=== PATIENT | female | born 1960 | race Caucasian/White ===

== ENCOUNTER 2018-08-04 05:07 | Observation (INO) ==
--- NOTE | 2018-07-27 09:05 | EKG Report ---
Test Performed on : 07/27/2018 08:44:32 AM Test Reason : pat Blood Pressure : / mmHG Vent. Rate : 093 BPM Atrial Rate : 093 BPM P-R Int : 152 ms QRS Dur : 080 ms QT Int : 364 ms P-R-T Axes : 031 015 049 degrees QTc Int : 452 ms Normal sinus rhythm. Normal ECG When compared with ECG of 06-AUG-2017 07:48, No significant change was found Confirmed by Sajan RAM, Walt Box ([id number]) on 07/27/2018 9:28:56 AM
[2018-07-27 09:07] LABS: URINE SOURCE CLEAN CATCH
[2018-07-27 09:24] LABS: BILIRUBIN URINE NEGATIVE (NEGATIVE); BLOOD URINE NEGATIVE (NEGATIVE); COLOR YELLOW; GLUCOSE URINE NEGATIVE (NEGATIVE); KETONE URINE NEGATIVE (NEGATIVE); LEUKOCYTES URINE LARGE (NEGATIVE); NITRITE URINE NEGATIVE (NEGATIVE); PH URINE 6.5; PROTEIN URINE TRACE mg/dL (NEGATIVE); SP GRAVITY URINE 1.007; TURBIDITY URINE CLEAR (CLEAR); UROBILINOGEN URINE NORMAL (NORMAL)
[2018-07-27 09:25] LABS: BASO# 0.03 X1000 (0.0-0.2); BASO% 0.5 % (0.0-0.8); EOS# 0.21 X1000 (0.0-0.7); EOS% 3.3 % (0.0-10.0); HEMATOCRIT 44.8 % (37.0-47.0); HEMOGLOBIN 15.1 g/dL (12.0-16.0); LYMPH% 33.4 % (20.5-51.1); MCH 30.2 PG (27-31); MCHC 33.7 g/dL (33-37); MCV 89.6 FL (81-99); MONO# 0.63 X1000 (0.11-0.59); MPV 9.4 FL (7.4-10.4); NEUT# 3.31 X1000 (1.4-6.5); NEUT% 52.8 % (42.2-75.2); PLT 352 X1000 (130-400); RDW 13.1 % (11.5-14.5); UR EPITHELIAL CELLS <10 /HPF (<10); URINE BACTERIA NEGATIVE /HPF; URINE RBC <10 /HPF (<10); URINE WBC 20-40 /HPF (<10); WBC 6.28 X1000 (4.8-10.8)
[2018-07-27 09:44] LABS: INR 1.05; PROTIME 14.5 Seconds (11.0-16.0)
[2018-07-27 09:49] LABS: AGAP 12; BUN 11 mg/dL (8-22); CALCIUM 9.7 mg/dL (8.8-10.2); CHLORIDE 93 mmol/L (98-107); COSMO 274; CREATININE 0.8 mg/dL (0.5-0.9); ESTIMATED GFR > 60; GLUCOSE 147 mg/dL (70-104); POTASSIUM 4.4 mmol/L (3.5-5.1); SODIUM 136 mmol/L (136-145); TCO2 31 mmol/L (25-35)
[2018-08-04] MEDS ORDERED: COLACE ONE (05:40)
[2018-08-04] MEDS ORDERED: LR 1,000 ML ONE (05:41)
[2018-08-04] MEDS ORDERED: KEFZOL 1 GM/D5W 2 GM/100 ML IVPB ONE (05:41)
[2018-08-04] MEDS ORDERED: REGLAN ONE (05:41)
[2018-08-04] MEDS ORDERED: CELEBREX ONE (05:41)
[2018-08-04] MEDS ORDERED: PEPCID ONE (05:41)
[2018-08-04] MEDS ORDERED: LYRICA ONE (05:41)
[2018-08-04] MEDS ORDERED: DECADRON ONE (06:33)
[2018-08-04] MEDS ORDERED: OFIRMEV 1000 MG/ISOTONIC SOLN 1,000 MG/100 ML BOTTLE ONE (06:33)
[2018-08-04] MEDS ORDERED: ROBINUL ONE (06:33)
[2018-08-04] MEDS ORDERED: XYLOCAINE-MPF 2% ONE (06:33)
[2018-08-04] MEDS ORDERED: FENTANYL ONE ×2 (06:37→07:43)
[2018-08-04] MEDS ORDERED: DIPRIVAN 1% ONE (06:37)
[2018-08-04] MEDS ORDERED: CYKLOKAPRON 1,000 MG/NS 1,000 MG/100 ML IVPB ONE ×2 (06:40→06:41)
[2018-08-04] MEDS ORDERED: SODIUM CHLORIDE 0.9% ONE (06:40)
[2018-08-04] MEDS ORDERED: MARCAINE 0.25% PF ONE (06:40)
[2018-08-04] MEDS ORDERED: NEOSPORIN G.U. IRRIGANT ONE (06:40)
[2018-08-04] MEDS ORDERED: EXPAREL 1.3% ONE (06:40)
[2018-08-04] MEDS ORDERED: TORADOL ONE (06:40)
[2018-08-04] MEDS ORDERED: VANCOMYCIN ONE (06:40)
[2018-08-04] MEDS ORDERED: DURAMORPH ONE (06:40)
[2018-08-04] MEDS ORDERED: VERSED ONE (06:41)
[2018-08-04] MEDS ORDERED: ZOFRAN ONE (07:08)
[2018-08-04] MEDS ORDERED: APRESOLINE ONE (07:41)
[2018-08-04] MEDS ORDERED: LOPRESSOR ONE (07:43)
[2018-08-04 07:54] LABS: URINE SOURCE CATH
[2018-08-04 08:01] LABS: BILIRUBIN URINE NEGATIVE (NEGATIVE); BLOOD URINE NEGATIVE (NEGATIVE); COLOR YELLOW; GLUCOSE URINE NEGATIVE (NEGATIVE); KETONE URINE NEGATIVE (NEGATIVE); LEUKOCYTES URINE NEGATIVE (NEGATIVE); NITRITE URINE NEGATIVE (NEGATIVE); PH URINE 6.5; PROTEIN URINE NEGATIVE (NEGATIVE); SP GRAVITY URINE 1.004; TURBIDITY URINE CLEAR (CLEAR); UROBILINOGEN URINE 2 mg/dL (NORMAL)
[2018-08-04 08:03] LABS: UR EPITHELIAL CELLS <10 /HPF (<10); URINE BACTERIA NEGATIVE /HPF; URINE RBC <10 /HPF (<10); URINE WBC <10 /HPF (<10)
--- NOTE | 2018-08-04 08:49 | OPERATIVE NOTE ---
PROCEDURE DATE: 08/04/2018 PREOPERATIVE DIAGNOSIS: Degenerative joint disease, left knee. POSTOPERATIVE DIAGNOSIS: Degenerative joint disease, left knee. PROCEDURE: Left total knee replacement. SURGEON: Mya Ya MD. PROFESSOR OF LANGUAGES: ELINA Bermudez. Mr. Oakes is necessary for proper retraction and manipulation of the extremity. ANESTHESIA: General. COMPLICATIONS: None. PROCEDURE IN DETAIL: A 57-year-old female presents for left total knee replacement. Risks, benefits, and no guarantees were discussed and she is willing to proceed. She was taken the operating room and satisfactory anesthesia obtained. The left knee was prepped and draped in usual sterile fashion. A time-out was taken to confirm operative site, procedure, and patient. The leg was then wrapped with an Esmarch and tourniquet inflated to 350 mmHg. A midline incision was made over the front of the knee followed by a quad tendon sparing arthrotomy. The patella was everted and resurfaced with freehand technique. With the patella subluxed laterally, the knee was flexed, an intramedullary hole made in the distal femur and the distal femoral cutting block secured in 5 degrees of valgus. Distal femoral resection was made and the femur sized to a size 4 DePuy Attune femoral implant. The 4 in 1 block was secured and the anterior, posterior, and chamfer cuts sequentially made followed by a notch for posterior stabilized design. Any remaining osteophytes were debrided from the femur. A PCL retractor was placed behind the tibia to protect the neurovascular bundle and the knee flexed. Tibial cutting block secured using extramedullary alignment. Tibial resection was made and flexion and extension gaps were roughly equal with a 7 mm spacer. Tibia was sized to a size 4 tibial tray. A trial reduction was performed with good range of motion and stability with trial components. The patella was sized to a 29 medialized dome patella. The lug holes were placed for the patella and femoral components and the trial components withdrawn. The bony surfaces were thoroughly irrigated with pulsatile lavage with irrigant and then dried with suction and towels. Cement with 1 gram of vancomycin was mixed and utilized to secure the size 4 rotating platform tibial base plate, a size 4 left posterior stabilized standard width femoral component and a 29 medialized dome patella. Excess cement was removed with a Protivin elevator. After full cure, the joint capsule was injected with Exparel and a Hemovac drain placed. A posterior stabilized size 4 7 mm thick polyethylene bearing was secured in the tibial tray and the knee reduced. Final range of motion was assessed with 0 to 130 degrees of flexion and midline patellar tracking. The knee was copiously irrigated with irrigant and closed over the drain with #1 Vicryl in the arthrotomy, 2-0 Vicryl in the subcutaneous and skin david on the skin edges. Sterile dressings completed the closure and the tourniquet was released with good return of capillary blood flow. The patient was recovered from anesthesia and transferred to the recovery room in stable condition. COMPLICATIONS: No intraoperative complications were noted. COUNTS: Instrument count and sponge count was correct at the time of closure. cc: Rahul Ya MD
[2018-08-04] MEDS ORDERED: NS 1,000 ML ONE (09:03)
[2018-08-04] MEDS ORDERED: OXY IR PO PRN (09:15)
[2018-08-04] MEDS ORDERED: MORPHINE IV PRN ×3 (09:15)
[2018-08-04] MEDS ORDERED: ZOFRAN ODT PO PRN (09:15)
--- NOTE | 2018-08-04 09:30 | Diag Imaging Result Doc PS360 ---
EXAM: KNEE 1-2 VIEWS-LEFT 08/04/2018 HISTORY: post op TECHNIQUE: Left knee two views COMMENT: There has been a total knee arthroplasty. There is no evidence of fracture or dislocation. IMPRESSION: Postsurgical change. Electronically signed by Steve Burgos 08/04/2018 9:28 AM
[2018-08-04] MEDS: ZOFRAN IV PRN ×2 (10:21→16:38)
[2018-08-04] MEDS: NS 1,000 ML IV SCH ×2 (10:33→22:09)
[2018-08-04] MEDS: TYLENOL PO SCH ×3 (14:58→22:12)
[2018-08-04] MEDS: ULTRAM PO SCH ×3 (14:59→22:12)
[2018-08-04] MEDS: KEFZOL 2 GM/D5W 2 GM/50 ML IVPB IV SCH ×2 (16:03→23:54)
[2018-08-04 16:29] LABS: INR 1.02; PROTIME 14.3 Seconds (11.0-16.0)
--- NOTE | 2018-08-04 17:27 | ORTHOPAEDICS PROGRESS NOTE ---
DATE: 08/04/2018 Ms Flores is seen status post total knee replacement. At the present time, she is afebrile with stable vital signs. Her bandage is clean and dry. She is relatively comfortable. There is good capillary refill. There are no signs of active bleeding. Her x-rays look good with good alignment of the total knee. We will plan on mobilizing her soon and discontinuing her lines as she progresses. cc: Rahul Ya MD
[2018-08-04] MEDS ORDERED: ZYPREXA PO SCH (21:00)
[2018-08-04] MEDS ORDERED: IMURAN PO SCH (21:00)
[2018-08-04] MEDS ORDERED: LEXAPRO PO SCH (21:00)
[2018-08-04] MEDS ORDERED: PEPCID PO SCH (21:00)
[2018-08-04] MEDS: PERIDEX MT SCH (22:05)
[2018-08-04] MEDS: CELEBREX PO SCH (22:06)
[2018-08-04] MEDS: GLUCOSAMINE 500 MG/CHONDROITIN 400 MG PO SCH (22:07)
[2018-08-04] MEDS: COLACE PO SCH (22:07)
[2018-08-04] MEDS: OXY IR PO PRN (23:55)
[2018-08-05] MEDS: ULTRAM PO SCH ×2 (03:00→08:23)
[2018-08-05] MEDS: OXY IR PO PRN (04:27)
[2018-08-05] MEDS: SYNTHROID PO SCH ×2 (04:31→06:30)
[2018-08-05] MEDS: TYLENOL PO SCH ×2 (06:29→08:22)
[2018-08-05 06:31] LABS: HEMATOCRIT 34.1 % (37.0-47.0); HEMOGLOBIN 11.3 g/dL (12.0-16.0)
[2018-08-05 06:57] LABS: AGAP 10; BUN 11 mg/dL (8-22); CALCIUM 8.6 mg/dL (8.8-10.2); CHLORIDE 95 mmol/L (98-107); COSMO 267; CREATININE 0.8 mg/dL (0.5-0.9); ESTIMATED GFR > 60; GLUCOSE 123 mg/dL (70-104); POTASSIUM 4.6 mmol/L (3.5-5.1); SODIUM 133 mmol/L (136-145); TCO2 28 mmol/L (25-35)
--- NOTE | 2018-08-05 08:05 | ORTHOPAEDICS PROGRESS NOTE ---
DATE: 08/05/2018 SUBJECTIVE DATA: Ms. Flores is seen on postop day 1 of her left total knee arthroplasty. She reports doing well at this time. She reports her pain is 2/10. She reports to have some nausea throughout the night, and is requesting some nausea medication. OBJECTIVE DATA: There is good sensation in the left lower extremity. There are good pedal pulses. Bandages are clean and dry. There is negative Homans sign. The patient is able to flex her quadriceps muscles without difficulty. Vital signs are stable. LABORATORY DATA: Within normal limits. ASSESSMENT: Degenerative joint disease, left knee, with total knee arthroplasty. PLAN: Will plan on sending Ms. Flores home with home therapy at this time. Will place her on Hodges for pain. She can continue her Coumadin for DVT prophylaxis. Will give her some Zofran to take as well. I will place her on Bactrim to prevent infection. She is to follow up in the office in roughly 10 to 14 days for staple removal. Dictated by ELINA Bermudez for Rahul Ya MD cc: ELINA Bermudez MD
[2018-08-05 08:09] VITALS: BP 120/61
[2018-08-05] MEDS: PERIDEX MT SCH (08:23)
[2018-08-05] MEDS: CELEBREX PO SCH (08:23)
[2018-08-05] MEDS: GLUCOSAMINE 500 MG/CHONDROITIN 400 MG PO SCH (08:23)
[2018-08-05] MEDS: COLACE PO SCH (08:23)
[2018-08-05] MEDS ORDERED: WELLBUTRIN XL PO SCH (09:00)
[2018-08-05] MEDS ORDERED: FOLIC ACID PO SCH (09:00)
[2018-08-05] MEDS ORDERED: ZINC SULFATE PO SCH (09:00)
[2018-08-05] MEDS ORDERED: KLOR-CON PO SCH (09:00)
[2018-08-05] MEDS ORDERED: REMICADE IV SCH (09:00)
[2018-08-05] MEDS ORDERED: CENTRUM SILVER PO SCH (09:00)
[2018-08-05] MEDS ORDERED: VITAMIN D PO SCH (09:00)
[2018-08-05] MEDS ORDERED: IMURAN PO SCH (09:00)
[2018-08-05] MEDS ORDERED: SYNTHROID PO SCH (09:00)
[2018-08-05] MEDS ORDERED: BIOTIN PO SCH (09:00)
[2018-08-05] MEDS ORDERED: ASPIRIN PO SCH (09:00)
[2018-08-05] MEDS ORDERED: SODIUM BICARBONATE PO SCH (09:00)
[2018-08-05] MEDS ORDERED: LASIX PO SCH (09:00)
[2018-08-05] MEDS ORDERED: COUMADIN PO SCH (21:00)
== END 2018-08-05 13:52 | disposition home or self-care (01) ==
LOC: 4N 05:07 → OR 05:07
PROVIDERS: ADMIT Orthopaedic Surgery Adult Reconstructive Orthopaedic Surgery; ATTEND Orthopaedic Surgery Adult Reconstructive Orthopaedic Surgery
CPT/HCPCS: 73560; 80048; 81001; 85014; 85018; 85025; 85610; 85730; 86850; 86900; 86901; 88305; 88311; 93005; 93010; 94760; 94761; 94799; 97110; 97116; 97162; 97530; A9270; C9290; J0131; J0360; J0690; J1100; J1885; J2250; J2274; J2275; J2405; J3010; J3370; J7030; J7120; J7500; Q9974; S0020